=== PATIENT | female | born 1960 | race Caucasian/White ===

== ENCOUNTER 2022-05-18 15:05 | Inpatient (IN) | payer OTHER ==
[~2022-05-18] VITALS: Ht 154.9 cm; Wt 60.8 kg
[2022-05-18 15:20] LABS: BASOPHILS % 0.3 % (0.0-2.0); EOSINOPHILS % 0.3 % (0.0-5.0); HEMATOCRIT. 39.2 % (36.0-48.0); HEMOGLOBIN. 13.6 g/dL (12.0-16.0); LYMPHOCYTES % 25.1 % (20.0-50.0); MEAN CORPUSCULAR HEMOGLOBIN 33.2 pg (28.0-32.0); MEAN CORPUSCULAR VOLUME 95.6 fL (81.0-99.0); MEAN PLATELET VOLUME 8.4 fl (7.4-10.4); MONOCYTES % 9.8 % (2.0-8.0); NEUTROPHILS % 64.5 % (40.0-76.0); PLATELET 204 x1000/uL (130-400); RED CELL DISTRIBUTION WIDTH 12.5 % (11.6-14.6)
[2022-05-18] MEDS ORDERED: IOHEXOL-350 100 ML BOTTLE ONE (15:31)
[2022-05-18 15:36] LABS: CHLORIDE 105 mEq/L (98-107)
[2022-05-18 15:44] LABS: ETHANOL BLOOD < 10 mg/dL
[2022-05-18] MEDS: ASPIRIN 325MG EC TABLET PO ONE ×2 (15:58→16:15)
[2022-05-18 16:20] LABS: PROTHROMBIN TIME 10.9 sec (9.6-11.0)
[2022-05-18 17:06] LABS: CLARITY URINE CLEAR (CLEAR); COLOR URINE YELLOW (YELLOW); KETONES URINE NEGATIVE (NEGATIVE); LEUKOCYTE ESTERASE URINE NEGATIVE (NEGATIVE); NITRITE URINE NEGATIVE (NEGATIVE); OCCULT BLOOD URINE NEGATIVE (NEGATIVE); PH URINE 7.5 (4.5-8.0); PROTEIN URINE NEGATIVE (NEGATIVE); SPECIFIC GRAVITY URINE 1.044 (1.005-1.030); UROBILINOGEN URINE 0.2 E.U./dL (0.2-1.0)
[2022-05-18 17:18] LABS: *AMPHETAMINES SCREEN URINE NEGATIVE (NEGATIVE); *BARBITURATES SCREEN URINE NEGATIVE (NEGATIVE); *BENZODIAZEPINES SCREEN URINE NEGATIVE (NEGATIVE); *COCAINE SCREEN URINE NEGATIVE (NEGATIVE); CANNABINOID URINE SCREEN NEGATIVE (NEGATIVE); METHADONE URINE SCREEN NEGATIVE (NEGATIVE); OPIATES URINE SCREEN NEGATIVE (NEGATIVE); PHENCYCLIDINE URINE SCREEN NEGATIVE (NEGATIVE)
[2022-05-18] MEDS ORDERED: ATORVASTATIN CALCIUM 40MG TABLET PO NR (17:30)
[2022-05-18] MEDS ORDERED: ATORVASTATIN CALCIUM 40MG TABLET PO SCH (21:00)
[2022-05-18] MEDS ORDERED: MAGNESIUM/ALUMINUM HYDROXIDE/SIMETHICONE 30ML UDC PO PRN (22:15)
[2022-05-18] MEDS ORDERED: CLONIDINE 0.1MG TABLET PO PRN (22:15)
[2022-05-18] MEDS ORDERED: KETOROLAC 15MG/ML VIAL IV PRN (22:15)
[2022-05-18] MEDS ORDERED: NITROGLYCERIN 0.4MG TABLET SL SL PRN (22:15)
[2022-05-18] MEDS ORDERED: ZOLPIDEM TARTRATE 5MG TABLET PO PRN (22:15)
[2022-05-18] MEDS ORDERED: ACETAMINOPHEN 325MG TABLET PO PRN ×2 (22:15)
[2022-05-18] MEDS ORDERED: NA PHOS,M-B/NA PHOS,DI-BA ENEMA 118ML PR PRN (22:15)
[2022-05-18] MEDS ORDERED: DOCUSATE SODIUM 100MG CAPSULE PO PRN (22:15)
[2022-05-18] MEDS ORDERED: ONDANSETRON HCL 4MG/2ML INJ IV PRN (22:15)
[2022-05-18] MEDS ORDERED: GUAIFENESIN 200MG/10ML SUGAR FREE UDC PO PRN (22:15)
[2022-05-18] MEDS ORDERED: IPRATROPIUM/ALBUTEROL 0.5-3(2.5)MG/3ML NEB NEB PRN (22:15)
[2022-05-18 22:26] VITALS: BP 140/73
[2022-05-18 22:30] VITALS: BP 140/73
[2022-05-18 22:38] LABS: T4 FREE 1.37 ng/dL (0.76-1.46)
[2022-05-18 22:57] LABS: VITAMIN B12 SERUM 635 pg/mL (211-911)
[2022-05-18] MEDS ORDERED: DOCU-138 PO (23:19)
[2022-05-18] MEDS ORDERED: OXYC-662 PO (23:19)
[2022-05-18] MEDS: FAMOTIDINE 20MG TABLET PO SCH (23:28)
[2022-05-18] MEDS: ENOXAPARIN 40MG/0.4ML SYR SUBCUT SCH (23:30)
[2022-05-19] VITALS: BP 119/69
[2022-05-19 04:00] VITALS: BP 90/54
[2022-05-19 08:00] VITALS: BP 110/68
[2022-05-19 08:01] LABS: BASOPHILS % 0.6 % (0.0-2.0); EOSINOPHILS % 0.9 % (0.0-5.0); HEMATOCRIT. 37.4 % (36.0-48.0); HEMOGLOBIN. 13.1 g/dL (12.0-16.0); LYMPHOCYTES % 29.1 % (20.0-50.0); MEAN CORPUSCULAR HEMOGLOBIN 33.9 pg (28.0-32.0); MEAN CORPUSCULAR VOLUME 96.6 fL (81.0-99.0); MEAN PLATELET VOLUME 8.9 fl (7.4-10.4); MONOCYTES % 11.4 % (2.0-8.0); PLATELET 214 x1000/uL (130-400); RED BLOOD CELL COUNT 3.87 mill/uL (4.2-5.4); RED CELL DISTRIBUTION WIDTH 12.6 % (11.6-14.6)
[2022-05-19 08:21] LABS: CHLORIDE 104 mEq/L (98-107)
[2022-05-19] MEDS: CLOPIDOGREL 75MG TABLET PO SCH (08:37)
[2022-05-19] MEDS: FAMOTIDINE 20MG TABLET PO SCH ×2 (08:37→22:25)
[2022-05-19 08:52] LABS: CREATINE KINASE 69 IU/L (26-192); CREATINE KINASE MB FRACTION < 1.0 ng/mL (0.5-3.6); PHOSPHORUS 4.3 mg/dL (2.5-4.9)
[2022-05-19 12:00] VITALS: BP_SYST 111; BP_SYST 144; BP_DIAS 47; BP_DIAS 76
[2022-05-19 16:00] VITALS: BP 109/75
[2022-05-19 20:00] VITALS: BP 103/60
[2022-05-19 21:53] LABS: CREATINE KINASE 48 IU/L (26-192); CREATINE KINASE MB FRACTION < 1.0 ng/mL (0.5-3.6)
[2022-05-19] MEDS: ENOXAPARIN 40MG/0.4ML SYR SUBCUT SCH (22:24)
[2022-05-20] VITALS: BP 104/61
[2022-05-20 04:00] VITALS: BP 110/67
[2022-05-20 08:00] VITALS: BP 103/67
[2022-05-20] MEDS: CLOPIDOGREL 75MG TABLET PO SCH (09:12)
[2022-05-20] MEDS: FAMOTIDINE 20MG TABLET PO SCH ×2 (09:12→22:06)
[2022-05-20 12:00] VITALS: BP 117/78
[2022-05-20 16:00] VITALS: BP 126/77
[2022-05-20 20:00] VITALS: BP 117/78
[2022-05-20] MEDS: ATORVASTATIN CALCIUM 10MG TABLET PO SCH (22:06)
[2022-05-20] MEDS: ENOXAPARIN 40MG/0.4ML SYR SUBCUT SCH (22:07)
[2022-05-20 22:34] LABS: T4 FREE 1.28 ng/dL (0.76-1.46)
[2022-05-21 00:41] LABS: CREATINE KINASE 43 IU/L (26-192); CREATINE KINASE MB FRACTION < 1.0 ng/mL (0.5-3.6)
[2022-05-21 04:00] VITALS: BP 104/58
[2022-05-21 08:08] VITALS: BP 105/67
[2022-05-21] MEDS: CLOPIDOGREL 75MG TABLET PO SCH (09:04)
[2022-05-21] MEDS: FAMOTIDINE 20MG TABLET PO SCH ×2 (09:04→21:31)
[2022-05-21 11:51] VITALS: BP 108/69
[2022-05-21 13:16] LABS: CREATINE KINASE MB FRACTION 1.5 ng/mL (0.5-3.6)
[2022-05-21 15:47] VITALS: BP 100/60
[2022-05-21 17:27] LABS: CREATINE KINASE 42 IU/L (26-192); CREATINE KINASE MB FRACTION < 1.0 ng/mL (0.5-3.6)
[2022-05-21 20:00] VITALS: BP 113/68
[2022-05-21] MEDS: ENOXAPARIN 40MG/0.4ML SYR SUBCUT SCH (21:31)
[2022-05-21] MEDS: ATORVASTATIN CALCIUM 10MG TABLET PO SCH (21:33)
[2022-05-22] VITALS: BP 112/70
[2022-05-22 04:00] VITALS: BP 119/69
[2022-05-22 05:55] LABS: HEMATOCRIT 35.6 % (36.0-48.0); HEMOGLOBIN 12.6 g/dL (12.0-16.0); MEAN CORPUSCULAR HEMOGLOBIN 33.8 pg (28.0-32.0); MEAN CORPUSCULAR VOLUME 95.4 fL (81.0-99.0); PLATELET 206 x1000/uL (130-400); RED BLOOD CELL COUNT 3.73 mill/uL (4.2-5.4); RED CELL DISTRIBUTION WIDTH 12.5 % (11.6-14.6)
[2022-05-22 08:09] LABS: CHLORIDE 108 mEq/L (98-107)
[2022-05-22 08:13] LABS: PHOSPHORUS 3.7 mg/dL (2.5-4.9)
[2022-05-22 08:30] VITALS: BP 106/67
[2022-05-22] MEDS: FAMOTIDINE 20MG TABLET PO SCH ×2 (09:00→20:50)
[2022-05-22] MEDS: CLOPIDOGREL 75MG TABLET PO SCH (09:00)
[2022-05-22 12:00] VITALS: BP 134/74
[2022-05-22] MEDS ORDERED: TETRACAINE/BENZOCAINE/BUTAMBEN 20 GM SPRAY MM ONE (13:19)
[2022-05-22] MEDS ORDERED: FENTANYL CITRATE/PF 50MCG/ML 2ML VIAL ONE (13:20)
[2022-05-22] MEDS ORDERED: MIDAZOLAM HCL 2 MG/2 ML VIAL ONE (13:20)
[2022-05-22] MEDS ORDERED: LIDOCAINE 2% JELLY PREFILLED SYRINGE MM ONE (13:22)
[2022-05-22 16:00] VITALS: BP 118/69
[2022-05-22 20:00] VITALS: BP 107/74
[2022-05-22] MEDS: ATORVASTATIN CALCIUM 10MG TABLET PO SCH (20:50)
[2022-05-22] MEDS: ENOXAPARIN 40MG/0.4ML SYR SUBCUT SCH (20:50)
[2022-05-23] VITALS: BP 97/50
[2022-05-23 04:00] VITALS: BP 120/72
[2022-05-23] MEDS: CLOPIDOGREL 75MG TABLET PO SCH (09:32)
[2022-05-23] MEDS: FAMOTIDINE 20MG TABLET PO SCH ×2 (09:32→20:24)
[2022-05-23 12:00] VITALS: BP 113/67
[2022-05-23] MEDS: ASPIRIN 81MG TABLET PO SCH (12:42)
[2022-05-23] MEDS: APIXABAN 5 MG TABLET PO SCH ×2 (12:43→20:24)
[2022-05-23 16:00] VITALS: BP 121/64
[2022-05-23 20:00] VITALS: BP 128/72
[2022-05-23] MEDS: ATORVASTATIN CALCIUM 10MG TABLET PO SCH (20:24)
[2022-05-24] VITALS: BP 102/68
[2022-05-24 04:00] VITALS: BP 112/61
[2022-05-24 07:43] LABS: HEMATOCRIT 35.8 % (36.0-48.0); HEMOGLOBIN 12.5 g/dL (12.0-16.0); MEAN CORPUSCULAR HEMOGLOBIN 33.5 pg (28.0-32.0); MEAN CORPUSCULAR VOLUME 96.1 fL (81.0-99.0); PLATELET 220 x1000/uL (130-400); RED BLOOD CELL COUNT 3.73 mill/uL (4.2-5.4); RED CELL DISTRIBUTION WIDTH 12.7 % (11.6-14.6)
[2022-05-24 08:00] VITALS: BP 104/68
[2022-05-24 08:24] LABS: CHLORIDE 106 mEq/L (98-107)
[2022-05-24 08:45] LABS: PHOSPHORUS 4.1 mg/dL (2.5-4.9)
[2022-05-24] MEDS: ASPIRIN 81MG TABLET PO SCH (09:26)
[2022-05-24] MEDS: FAMOTIDINE 20MG TABLET PO SCH (09:26)
[2022-05-24] MEDS: APIXABAN 5 MG TABLET PO SCH (09:26)
[2022-05-24] MEDS ORDERED: ATOR10TA PO ×3 (09:44→15:46)
[2022-05-24] MEDS ORDERED: FAMO20TA8 PO ×3 (09:44→15:46)
[2022-05-24] MEDS ORDERED: ASPI-1160 PO ×3 (09:44→15:46)
[2022-05-24] MEDS ORDERED: APIX5TAB MT ×3 (09:44→15:46)
[2022-05-24] MEDS ORDERED: APIX5TAB PO ×3 (09:44→15:46)
[2022-05-24 12:00] VITALS: BP 115/69
[2022-05-24 14:35] VITALS: BP 115/69
[2022-05-24 16:00] VITALS: BP 110/67
[2022-05-30] MEDS ORDERED: APIXABAN 5 MG TABLET PO SCH (09:00)
== END 2022-05-24 17:30 | disposition home or self-care (01) | DRG 65 ==
LOC: ER 15:05 → 7EST 18:56 → EDBEDREQSVC 19:00 → EDBEDREQTM 19:00 → EDBEDREQ 19:00 → ENRESERV 20:14
PROVIDERS: ADMIT Internal Medicine; ATTEND Internal Medicine
DX: I63.512 Cerebral infarction due to unspecified occlusion or stenosis of left middle cerebral artery (principal); G81.91 Hemiplegia, unspecified affecting right dominant side; I25.3 Aneurysm of heart; E78.00 Pure hypercholesterolemia, unspecified; I10 Essential (primary) hypertension; R13.10 Dysphagia, unspecified; R47.01 Aphasia; R29.705 NIHSS score 5; R26.9 Unspecified abnormalities of gait and mobility; E78.5 Hyperlipidemia, unspecified; K80.20 Calculus of gallbladder without cholecystitis without obstruction; G51.0 Bell's palsy; Z90.49 Acquired absence of other specified parts of digestive tract; Z90.710 Acquired absence of both cervix and uterus; Z79.01 Long term (current) use of anticoagulants; Z79.899 Other long term (current) drug therapy; Z80.6 Family history of leukemia; Z82.49 Family history of ischemic heart disease and other diseases of the circulatory system
CPT/HCPCS: 36415; 70496; 70498; 70551; 71045; 80048; 80053; 80061; 80305; 80320; 81003; 82550; 82553; 82607; 82746; 82962; 83036; 83540; 83550; 83735; 83880; 84100; 84439; 84443; 84484; 85025; 85027; 85379; 87426; 92523; 93005; 93306; 93312; 93970; 97162; 97166; 99291; J1650; J1885; J2250; J3010; Q9967; G0480